=== PATIENT | female | born 2000 | race Caucasian/White ===

== ENCOUNTER 2020-03-04 15:58 | Observation (INO) | payer OTHER ==
[2020-03-04 19:12] LABS: COVID AG,FIA SOURCE NASOPHARYNGEAL
[2020-03-05] MEDS ORDERED: FOLI0.4T6 PO (10:18)
[2020-03-05] MEDS ORDERED: FERR-82 PO (10:18)
== END 2020-03-04 16:20 | disposition home or self-care (01) ==
LOC: 4S 15:58 → UNDODISOB 16:20
PROVIDERS: ADMIT Obstetrics & Gynecology; ATTEND Obstetrics & Gynecology
DX: Z34.93 Encounter for supervision of normal pregnancy, unspecified, third trimester (principal); Z20.822 Contact with and (suspected) exposure to COVID-19; Z3A.39 39 weeks gestation of pregnancy
CPT/HCPCS: 87426; 99219; G0378; Z7514

== ENCOUNTER 2020-03-05 10:15 | Inpatient (IN) | payer OTHER ==
[~2020-03-05] VITALS: Ht 154.9 cm; Wt 97.1 kg
[2020-03-05] MEDS ORDERED: FERR-82 PO (10:18)
[2020-03-05] MEDS ORDERED: FOLI0.4T6 PO (10:18)
[2020-03-05] MEDS ORDERED: METHYLERGONOVINE MALEATE 0.2 MG/ML VIAL IM PRN (10:30)
[2020-03-05] MEDS ORDERED: FentaNYL CITRATE PF 100 MCG/2 ML VIAL IVP PRN (10:30)
[2020-03-05] MEDS ORDERED: CITRIC ACID/SODIUM CITRATE 30 ML SOLUTION UDCUP PO PRN (10:30)
[2020-03-05] MEDS ORDERED: METOCLOPRAMIDE HCL 5 MG/ML 2 ML VIAL IVP PRN (10:30)
[2020-03-05] MEDS ORDERED: OXYTOCIN 30 UNITS/LACT RINGERS 500 ML IV ONE (10:30)
[2020-03-05 10:51] LABS: BASOPHILS % (AUTO) 0.2 % (0.0-2.0); EOSINOPHILS % (AUTO) 0.5 % (1.0-6.0); HEMATOCRIT 34.4 % (36-46); HEMOGLOBIN 11.4 g/dL (12.0-16.0); LYMPHOCYTES # (AUTO) 1.4 K/uL (1.0-4.8); LYMPHOCYTES % (AUTO) 18.9 % (22.0-44.0); MEAN CORPUSCULAR HEMOGLOBIN 27.4 pg (26.0-34.0); MEAN CORPUSCULAR HGB CONC 33.2 G/dL (31.0-37.0); MEAN CORPUSCULAR VOLUME 83 fL (80-100); MONOCYTES # (AUTO) 0.5 K/uL (0.1-1.0); MONOCYTES % (AUTO) 6.7 % (2.0-9.0); NEUTROPHILS # (AUTO) 5.6 K/uL (1.8-7.7); NEUTROPHILS % (AUTO) 73.7 % (40.0-70.0); PLATELET COUNT (AUTO) 313 K/uL (150-450); RED BLOOD CELL COUNT(AUTO) 4.17 MIL/uL (4.00-5.20); RED CELL DISTRIBUTION WIDTH 13.8 % (11.5-14.5)
[2020-03-05 11:04] VITALS: BP 118/69
[2020-03-05] MEDS: RINGERS SOLUTION,LACTATED 1,000 ML IV SCH ×2 (11:41→18:41)
[2020-03-05] MEDS ORDERED: DINOPROSTONE 10 MG VAGINAL SUPPOSITORY VG ONE (13:00)
[2020-03-05] MEDS ORDERED: OXYGEN THERAPY IH SCH (20:00)
[2020-03-06] MEDS ORDERED: -PHARMACY NOTE- MISC ONE (01:00)
[2020-03-06] MEDS: RINGERS SOLUTION,LACTATED 1,000 ML IV SCH ×2 (01:41→07:29)
[2020-03-06] MEDS ORDERED: OXYTOCIN 30 UNITS/LACT RINGERS 500 ML IV PRN (02:15)
[2020-03-06] MEDS: RINGERS SOLUTION,LACTATED 1,000 ML IV PRN ×2 (05:08→06:47)
[2020-03-06] MEDS ORDERED: ROPIVACAINE HCL/PF 0.2% 100 ML ED ONE (05:19)
[2020-03-06] MEDS ORDERED: NALBUPHINE HCL 10 MG/ML VIAL IVP PRN (05:45)
[2020-03-06] MEDS ORDERED: ROPIVACAINE HCL/PF 0.2% 100 ML ED PRN (05:45)
[2020-03-06] MEDS ORDERED: DiphenhydrAMINE HCL 50 MG/ML VIAL IVP PRN (05:45)
[2020-03-06] MEDS ORDERED: ONDANSETRON HCL 4 MG/2 ML VIAL IVP PRN (05:45)
[2020-03-06] MEDS ORDERED: MAGNESIUM HYDROXIDE SUSPENSION 30 ML UDCUP PO PRN (14:15)
[2020-03-06] MEDS ORDERED: BENZOCAINE 20%/MENTHOL 56 GM SPRAY CANISTER TP PRN (14:15)
[2020-03-06] MEDS ORDERED: OxyCODONE HCL/ACETAMINOPHEN 5-325 MG TABLET PO PRN ×2 (14:15)
[2020-03-06] MEDS ORDERED: GLYCERIN/WITCH HAZEL LEAF 40 PADS JAR TP PRN (14:15)
[2020-03-06] MEDS ORDERED: LIDOCAINE/PF 1% 30 ML VIAL SQ PRN (14:15)
[2020-03-06] MEDS ORDERED: OXYTOCIN 30 UNITS/LACT RINGERS 500 ML IV ONE (14:15)
[2020-03-06] MEDS ORDERED: LANOLIN 7 GM OINTMENT TP PRN (14:15)
[2020-03-06] MEDS: IBUPROFEN 800 MG TABLET PO PRN (15:09)
[2020-03-07] MEDS: IBUPROFEN 800 MG TABLET PO PRN ×2 (02:44→08:38)
[2020-03-07 06:50] LABS: BASOPHILS % (AUTO) 0.2 % (0.0-2.0); EOSINOPHILS % (AUTO) 0.9 % (1.0-6.0); HEMATOCRIT 31.1 % (36-46); HEMOGLOBIN 10.5 g/dL (12.0-16.0); LYMPHOCYTES # (AUTO) 1.8 K/uL (1.0-4.8); LYMPHOCYTES % (AUTO) 18.7 % (22.0-44.0); MEAN CORPUSCULAR HEMOGLOBIN 28.2 pg (26.0-34.0); MEAN CORPUSCULAR HGB CONC 33.8 G/dL (31.0-37.0); MEAN CORPUSCULAR VOLUME 83 fL (80-100); MONOCYTES # (AUTO) 0.7 K/uL (0.1-1.0); MONOCYTES % (AUTO) 7.7 % (2.0-9.0); NEUTROPHILS # (AUTO) 6.9 K/uL (1.8-7.7); NEUTROPHILS % (AUTO) 72.5 % (40.0-70.0); PLATELET COUNT (AUTO)-OB 249 K/uL (150-450); RED BLOOD CELL COUNT(AUTO) 3.73 MIL/uL (4.00-5.20)
[2020-03-07] MEDS ORDERED: IBUP-2071 PO (09:16)
[2020-03-07] MEDS ORDERED: FERR-89 PO (09:17)
[2020-03-07] MEDS ORDERED: DOCU-275 PO (09:17)
== END 2020-03-07 14:10 | disposition home or self-care (01) | DRG 807 ==
LOC: 4S 10:15 → OBSVTOIN 10:15 → 4S 10:54 → UNDOADMOB 10:54
PROVIDERS: ADMIT Obstetrics & Gynecology; ATTEND Obstetrics & Gynecology
PROC: 10E0XZZ Delivery of Products of Conception, External Approach (ICD-10-PCS; principal; 2020-03-06)
PROC: 3E0R3BZ Introduction of Anesthetic Agent into Spinal Canal, Percutaneous Approach (ICD-10-PCS; 2020-03-06)
PROC: 00HU33Z Insertion of Infusion Device into Spinal Canal, Percutaneous Approach (ICD-10-PCS; 2020-03-06)
DX: O80 Encounter for full-term uncomplicated delivery (principal); Z37.0 Single live birth; Z3A.39 39 weeks gestation of pregnancy
CPT/HCPCS: 86850; 86900; 86901; J2590; J2795; J3010; J7120; 36415-L1; 36415-TC; 85025-TC; Z7610